=== PATIENT | female | born 1980 | race African-American/Black ===

== ENCOUNTER 2019-04-16 03:39 | Emergency (ER) | payer BC ==
[~2019-04-16] VITALS: Ht 157.5 cm; Wt 90.7 kg
[2019-04-16 03:40] VITALS: BP 119/81
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
[2019-04-16] MEDS ORDERED: KETOROLAC 30 MG/ML VIAL. IM ONE (04:45)
[2019-04-16] MEDS ORDERED: HYDR-3164 PO (04:47)
--- NOTE | 2019-04-16 08:23 | RAD ---
EXAM: Bilateral tibia/fibula 2 views. HISTORY: Fall with bilateral leg pain. COMPARISON: None. FINDINGS: No fractures are identified bilaterally. Small ossicles at the tips of the medial malleoli likely reflect chronic ligamentous injuries. There is subcutaneous edema throughout the right greater than left lower legs. The joint spaces and alignment of the knees and ankles appear maintained. IMPRESSION: 1. Subcutaneous edema bilaterally. No fracture. Electronically signed by: Lyndsay Morales MD (04/16/2019 8:20 AM) [facility]
== END 2019-04-16 04:50 | disposition home or self-care (01) ==
LOC: ER 03:39
DX: S93.492A Sprain of other ligament of left ankle, initial encounter (principal); S93.491A Sprain of other ligament of right ankle, initial encounter; I10 Essential (primary) hypertension; I25.2 Old myocardial infarction; F17.210 Nicotine dependence, cigarettes, uncomplicated; Z88.2 Allergy status to sulfonamides; V87.8XXA Person injured in other specified noncollision transport accidents involving motor vehicle (traffic), initial encounter; Y93.89 Activity, other specified; Y92.89 Other specified places as the place of occurrence of the external cause; Y99.8 Other external cause status
CPT/HCPCS: 29515; 73590; 96372; 99284; J1885